=== PATIENT | male | born 1945 | race Caucasian/White ===

== ENCOUNTER → 2016-09-21 | Outpatient (CLI) | payer MEDICARE ==
[~2016-09-21] MED LIST: ALLO300T PO; CELE200C PO; CHOL500014 PO; CODE30TA3 PO; CYAN50TA PO; DABI150C PO; DIGO250T PO; DILT240C9 PO; LORA1TAB PO; MILK140C PO; MULT-257 PO; PRAS50CA PO; TAMS0.4C2 PO; TERA2CAP3 PO; THYR120T PO; TRIA1CAP3 PO; VITA400C40 PO
== END | disposition home or self-care (01) ==
LOC: RAD 17:19
PROVIDERS: ATTEND Orthopaedic Surgery
DX: M79.89 Other specified soft tissue disorders (principal)

== ENCOUNTER → 2018-06-03 | Outpatient (CLI) | payer MEDICARE ==
[~2018-06-03] MED LIST changes: -CHOL500014 PO; +CHOL500045 PO; -VITA400C40 PO; +VITA400C43 PO
== END | disposition home or self-care (01) ==
LOC: CFH 13:35
PROVIDERS: ATTEND Physician Assistant Surgical
DX: I25.10 Atherosclerotic heart disease of native coronary artery without angina pectoris (principal); M48.56XA Collapsed vertebra, not elsewhere classified, lumbar region, initial encounter for fracture; M41.86 Other forms of scoliosis, lumbar region; Z90.49 Acquired absence of other specified parts of digestive tract; Z98.1 Arthrodesis status
CPT/HCPCS: 72131; 74176